=== PATIENT | male | born 1985 | race Caucasian/White ===

== ENCOUNTER 2018-12-29 02:10 | Emergency (ER) | payer OTHER ==
[~2018-12-29] VITALS: Ht 195.6 cm; Wt 136.1 kg
[2018-12-29 02:20] VITALS: Ht 195.6 cm; Wt 136.1 kg
[2018-12-29 04:12] VITALS: BP 172/102
== END 2018-12-29 04:12 | disposition home or self-care (01) ==
LOC: ED 02:10
DX: S60.221A Contusion of right hand, initial encounter (principal); Y04.0XXA Assault by unarmed brawl or fight, initial encounter; Y93.89 Activity, other specified; Y92.89 Other specified places as the place of occurrence of the external cause; Y99.8 Other external cause status